=== PATIENT | female | born 1945 ===

== ENCOUNTER 2017-06-10 10:06 | Day surgery (SDC) | payer OTHER ==
[2017-06-10 11:19] VITALS: O2SAT 100
[2017-06-10] MEDS ORDERED: Propofol 10 mg/ml Inj (20 ML) ONE (13:28)
[2017-06-10 14:16] VITALS: TEMP 98.9
[2017-06-10] MEDS ORDERED: Lactated Ringer's 500 ML IV SCH (14:30)
[2017-06-10 14:37] VITALS: RESP 15
[2017-06-10 14:46] VITALS: BP 122/71; PULSE 68
== END 2017-06-10 14:43 | disposition home or self-care (01) ==
LOC: C.ENDO 10:06
PROVIDERS: ATTEND Internal Medicine Gastroenterology
DX: K29.70 Gastritis, unspecified, without bleeding (principal); K44.9 Diaphragmatic hernia without obstruction or gangrene
CPT/HCPCS: 43239; 88305; 88342; J2704; J7120